=== PATIENT | female | born 1995 | race African-American/Black ===

== ENCOUNTER 2018-11-07 20:39 | Emergency (ER) | payer MEDICAID ==
[~2018-11-07] VITALS: Ht 165.1 cm; Wt 99.8 kg
[2018-11-07 21:40] VITALS: BP 167/80
[2018-11-08] MEDS ORDERED: cefTRIAXone SOD 1,000 MG VL IM ONE
[2018-11-08] MEDS ORDERED: methylPREDNISolone SOD SUCC 125 MG/2 ML VL IM ONE
== END 2018-11-08 00:40 | disposition home or self-care (01) ==
LOC: ER 20:46
DX: J06.9 Acute upper respiratory infection, unspecified (principal); Z88.6 Allergy status to analgesic agent
CPT/HCPCS: 96372; 99283; J0696; J2930